=== PATIENT | male | born 1975 | race Caucasian/White ===

== ENCOUNTER 2016-09-03 05:43 | Emergency (ER) | payer MEDICAID, OTHER ==
[~2016-09-03] VITALS: Ht 200.7 cm; Wt 86.5 kg
[2016-09-03 06:02] VITALS: Ht 200.7 cm; Wt 86.5 kg
[2016-09-03] MEDS ORDERED: SOD CHLORIDE 0.9% 1,000 ML IV STA (08:29)
[2016-09-03] MEDS ORDERED: morphine 4 MG/ML VIAL IV STA (08:29)
--- NOTE | 2016-09-03 09:09 | RADRPT ---
PROCEDURE: Chest x-ray CLINICAL INDICATION: Abdominal pain TECHNIQUE: Chest single view COMPARISON: None FINDINGS: The heart is normal in size. The pulmonary vessels are normal in caliber. The lungs are clear. Th e costophrenic angles are sharp. The visualized bony thorax is unremarkable. IMPRESSION: No acute cardiopulmonary disease. RPTAT: HH .Baudilio Granados MD, Date Time Electronically viewed and signed by .aBudilio Granados MD, MD on 09/03/2016 09:09 .W/
[2016-09-03 09:35] LABS: ADD SCAN DIFF NO
--- NOTE | 2016-09-03 09:36 | RADRPT ---
PROCEDURE: X-ray, Abdominal series. CLINICAL INDICATION: Abdominal pain. TECHNIQUE: Abdominal x-ray series, two views. COMPARISON: None. FINDINGS: A nonobstructive bowel gas pattern is present. There is no evidence of free intra-abdominal air. T here are no abnormal calcifications. A small moderate volume of formed stool seen within the right c olon. Skeletal structures are unremarkable. IMPRESSION: No evidence of acute intra-abdominal pathology. RPTAT: AA .Anyi Pride MD, MD Date Time Electronically viewed and signed by .Anyi Pride MD, MD on 09/03/2016 09:36 .T/
[2016-09-03 09:38] LABS: BASOPHILS % 0.2 % (0.0-2.0); EOSINOPHILS # 0.1 10^3/ul (0.0-0.5); EOSINOPHILS % 1.2 % (0.0-7.0); HEMATOCRIT 41.4 % (42.0-52.0); HEMOGLOBIN 14.4 g/dl (14.0-18.0); LYMPHOCYTES % 19.4 % (15.0-51.0); MEAN CORPUSCULAR HEMOGLOBIN 31.4 pg (29.0-33.0); MEAN CORPUSCULAR HGB CONC 34.8 g/dl (32.0-37.0); MEAN CORPUSCULAR VOLUME 90.2 fl (82.0-101.0); MEAN PLATELET VOLUME 8.5 fl (7.4-10.4); MONOCYTE # 0.9 10^3/ul (0.3-0.9); NEUTROPHIL # 7.3 10^3/ul (1.6-7.5); NEUTROPHILS % 69.8 % (39.0-77.0); PLATELET COUNT 185 10^3/UL (140-415); RED BLOOD COUNT 4.59 10^6/ul (4.70-6.10); RED CELL DISTRIBUTION WIDTH 12.1 % (11.5-14.5); WHITE BLOOD COUNT 10.5 10^3/ul (4.8-10.8)
[2016-09-03 09:46] LABS: POTASSIUM 4.4 mmol/L (3.5-5.1)
[2016-09-03 09:47] LABS: INR 0.99; PROTIME 13.1 Sec (12.2-14.2)
[2016-09-03 09:48] LABS: ALBUMIN/GLOBULIN RATIO 1.25; BILIRUBIN,INDIRECT 0.4 mg/dl (0-1.1); BILIRUBIN,TOTAL 0.4 mg/dl (0.2-1.3); CREATININE 0.62 mg/dl (0.61-1.24); PARTIAL THROMBOPLASTIN TIME 28.9 Sec (25.0-35.0); TOTAL PROTEIN 7.2 g/dl (6.1-8.1)
[2016-09-03 09:49] LABS: CALCIUM 9.1 mg/dl (8.4-10.2)
[2016-09-03] MEDS ORDERED: LIDOCAINE/MYLANTA 40 ML BTL PO ONE (11:00)
[2016-09-03 11:03] VITALS: BP 120/70; PULSE 78; RESP 16; TEMP 98.3
[2016-09-03] MEDS ORDERED: RANI150T9 PO (12:17)
[2016-09-03] MEDS ORDERED: NAPR-688 PO (12:17)
[2016-09-03] MEDS ORDERED: BENZ100C70 PO (12:17)
--- NOTE | 2016-09-03 12:23 | ERD ---
ER Documentation Chief Complaint Date/Time DATE: 09/03/16 TIME: 12:18 Chief Complaint Left sided chest pain, radiates left shoulder, SOB, cough ROS All systems reviewed and are negative except as per history of present illness. Medications Home Meds Active Scripts Benzonatate* (Tessalon Perle*) 100 Mg Capsule, 100 MG PO Q8H Y for COUGH, #20 CAP Prov:ANASTASIA ARANA DO 09/03/16 Ranitidine Hcl* (Zantac*) 150 Mg Tablet, 150 MG PO BID, #60 TAB Prov:ANASTASIA ARANA DO 09/03/16 Naproxen* (Naproxen*) 500 Mg Tablet, 500 MG PO BID, #20 TAB Prov:ANASTASIA ARANA DO 09/03/16 Allergies Allergies: Coded Allergies: No Known Allergy (Unverified , 09/03/16) PMhx/Soc Medical and Surgical Hx: pt denies Medical Hx, pt denies Surgical Hx Hx Alcohol Use: Yes Hx Substance Use: No Hx Tobacco Use: No Smoking Status: Never smoker Physical Exam Vitals Vital Signs Date Time Temp Pulse Resp B/P Pulse Ox O2 Delivery O2 Flow Rate FiO2 09/03/16 06:02 98.3 75 16 119/75 98 Physical Exam Const: [] Head: Atraumatic Eyes: Normal Conjunctiva ENT: Normal External Ears, Nose and Mouth. Neck: Full range of motion..~ No meningismus. Resp: Clear to auscultation bilaterally Cardio: Regular rate and rhythm, no murmurs Abd: Soft, non tender, non distended. Normal bowel sounds Skin: No petechiae or rashes Back: No midline or flank tenderness Ext: No cyanosis, or edema Neur: Awake and alert Psych: Normal Mood and Affect Result Diagram: 09/03/16 0900 09/03/16 0900 Results 24 hrs Laboratory Tests Test 09/03/16 09:00 Activated Partial Thromboplast Time 28.9Sec Alanine Aminotransferase (ALT/SGPT) 40IU/L Albumin 4.0g/dl Albumin/Globulin Ratio 1.25 Alkaline Phosphatase 102IU/L Anion Gap 14 Aspartate Amino Transf (AST/SGOT) 22IU/L Basophils # 0.010^3/ul Basophils % 0.2% Blood Urea Nitrogen 11mg/dl Calcium Level 9.1mg/dl Carbon Dioxide Level 28mmol/L Chloride Level 104mmol/L Creatinine 0.62mg/dl Direct Bilirubin 0.00mg/dl Eosinophils # 0.110^3/ul Eosinophils % 1.2% Globulin 3.20g/dl Glucose Level 90mg/dl Hematocrit 41.4% Hemoglobin 14.4g/dl INR International Normalized Ratio 0.99 Indirect Bilirubin 0.4mg/dl Lipase 52U/L Lymphocytes # 2.010^3/ul Lymphocytes % 19.4% Mean Corpuscular Hemoglobin 31.4pg Mean Corpuscular Hemoglobin Concent 34.8g/dl Mean Corpuscular Volume 90.2fl Mean Platelet Volume 8.5fl Monocytes # 0.910^3/ul Monocytes % 9.0% Neutrophils # 7.310^3/ul Neutrophils % 69.8% Nucleated Red Blood Cells # 0.010^3/ul Nucleated Red Blood Cells % 0.0/100WBC Platelet Count 83362^3/UL Potassium Level 4.4mmol/L Prothrombin Time 13.1Sec Prothrombin Time Ratio 1.0 Red Blood Count 4.5910^6/ul Red Cell Distribution Width 12.1% Sodium Level 142mmol/L Total Bilirubin 0.4mg/dl Total Protein 7.2g/dl White Blood Count 10.510^3/ul Current Medications Medications (Trade) Dose Ordered Sig/Medardo Route PRN Reason Start Time Stop Time Status Last Admin Dose Admin Sodium Chloride (NS) 1,000 ml @ 1,000 mls/hr Q1H STAT IV 09/03/16 08:29 09/03/16 09:28 DC 09/03/16 09:27 Morphine Sulfate (morphine) 4 mg ONCE STAT IV 09/03/16 08:29 09/03/16 08:32 DC 09/03/16 09:26 Miscellaneous Medication (Gi Cocktail (2)) 40 ml ONCE ONCE PO 09/03/16 11:00 09/03/16 11:01 DC 09/03/16 11:05 Procedures/MDM Patient with atypical chest pain. His midabdomen and traveling up through his upper body to his left shoulder. No signs of acute ischemia on his EKG and negative troponin. He also see no signs of acute overwhelming bacterial infection. Patient has no elevated white blood cell count. Vital signs are stable. Per symptoms described as coffee likely has a viral upper respiratory infection and acute bronchitis. He is feeling better in the emergency room after administration of 2 mg morphine IV, GI cocktail and IV fluid administration. Is very well-appearing and is actually hungry and wanted to be discharged to that he go to eat when I spoke to him last. I'm discharging with naproxen as well as Tessalon Perles for his cough and Zantac. I recommend an echocardiogram through his doctor and given both written and verbal instructions for this. Return precautions to the ER also given for any return of chest pain or any concerning symptoms. EKG interpretation: Normal sinus rhythm rate of 75, left axis deviation, no ST- T wave changes concerning for acute ischemia. Cardio monitor interpretation: Normal sinus rhythm without arrhythmia Chest x-ray interpretation: I see no acute process. I see no acute infiltrate, no widened mediastinum, no pneumothorax, no fractures Departure Diagnosis: Primary Impression: Bronchitis Additional Impression: URI, acute Condition: Stable Patient Instructions: Bronchitis, No Antibiotic (Adult), Chest Pain, Uncertain Cause Referrals: [facility] YOU HAVE RECEIVED A MEDICAL SCREENING EXAM AND THE RESULTS INDICATE THAT YOU DO NOT HAVE A CONDITION THAT REQUIRES URGENT TREATMENT IN THE EMERGENCY DEPARTMENT. FURTHER EVALUATION AND TREATMENT OF YOUR CONDITION CAN WAIT UNTIL YOU ARE SEEN IN YOUR DOCTORS OFFICE WITHIN THE NEXT 1-2 DAYS. IT IS YOUR RESPONSIBILITY TO MAKE AN APPOINTMENT FOR FOLOW-UP CARE. IF YOU HAVE A PRIMARY DOCTOR --you should call your primary doctor and schedule an appointment IF YOU DO NOT HAVE A PRIMARY DOCTOR YOU CAN CALL OUR PHYSICIAN REFERRAL HOTLINE AT IF YOU CAN NOT AFFORD TO SEE A PHYSICIAN YOU CAN CHOSE FROM THE FOLLOWING [facility] CLINICS [facility] [address] [facility] [facility] [address] [facility] [address] [facility] [facility] [address] [facility]. [facility] [address] [facility]. [facility]. [address] Additional Instructions: Llame al doctor TYRA y mark harvey CONCHIS PARA DENTRO DE 2-3 LEONARDO. Consigue un referral para un ECHOCARDIOGRAMA. Dgale a la secretaria que nosotros le instruimos hacer esta conchis.Avise o llame si hernandez condicin se empeora antes de la conchis. Regresa aqui si peor o no mejor. ANASTASIA ARANA DO Sep 03, 2016 12:23
== END 2016-09-03 12:37 | disposition home or self-care (01) ==
LOC: E/R 05:43
DX: J40 Bronchitis, not specified as acute or chronic (principal); J06.9 Acute upper respiratory infection, unspecified
CPT/HCPCS: 36415; 71010; 74010; 80053; 83690; 85025; 85610; 85730; 93005; 96374; J2270; J7030; Z7502; Z7610

== ENCOUNTER 2017-04-01 13:37 | Emergency (ER) | payer MEDICAID ==
[~2017-04-01] VITALS: Ht 165.1 cm; Wt 88.0 kg
[~2017-04-01 13:37] MED LIST: BENZ100C70 PO; NAPR-688 PO; RANI150T9 PO
[2017-04-01 13:41] VITALS: Ht 165.1 cm; Wt 88.0 kg
[2017-04-01] MEDS ORDERED: IBUPROFEN 800 MG TAB PO ONE (14:30)
[2017-04-01] MEDS ORDERED: ONDANSETRON 4 MG INJ IV STA (14:37)
[2017-04-01] MEDS ORDERED: SOD CHLORIDE 0.9% 1,000 ML IV STA (14:37)
[2017-04-01] MEDS ORDERED: morphine 4 MG/ML VIAL IV STA (14:37)
--- NOTE | 2017-04-01 14:52 | RADRPT ---
PROCEDURE: XR Chest. CLINICAL INDICATION: Chest pain. TECHNIQUE: Single frontal view. COMPARISON: 09/03/2016. FINDINGS: The lungs are clear. The heart size is normal. There is no pleural effusion. There is no pneumothorax. IMPRESSION: 1. Normal chest radiograph. 2. No change from 09/03/2016. RPTAT: QQ .Hubert Kerr MD, MD Date Time Electronically viewed and signed by .Hubert Kerr MD, MD on 04/01/2017 14:52 .R/
[2017-04-01 15:10] LABS: BASOPHILS % 0.3 % (0.0-2.0); EOSINOPHILS # 0.2 10^3/ul (0.0-0.5); EOSINOPHILS % 2.3 % (0.0-7.0); HEMATOCRIT 47.6 % (42.0-52.0); HEMOGLOBIN 16.5 g/dl (14.0-18.0); LYMPHOCYTES # 2.1 10^3/ul (0.8-2.9); LYMPHOCYTES % 19.4 % (15.0-51.0); MEAN CORPUSCULAR HEMOGLOBIN 31.3 pg (29.0-33.0); MEAN CORPUSCULAR HGB CONC 34.7 g/dl (32.0-37.0); MEAN CORPUSCULAR VOLUME 90.3 fl (82.0-101.0); MEAN PLATELET VOLUME 8.4 fl (7.4-10.4); MONOCYTES % 9.7 % (0.0-11.0); NEUTROPHIL # 7.2 10^3/ul (1.6-7.5); NEUTROPHILS % 67.9 % (39.0-77.0); PLATELET COUNT 203 10^3/UL (140-415); RED BLOOD COUNT 5.27 10^6/ul (4.70-6.10); RED CELL DISTRIBUTION WIDTH 12.1 % (11.5-14.5); WHITE BLOOD COUNT 10.6 10^3/ul (4.8-10.8)
[2017-04-01 15:10] LABS: ADD UMIC YES; UR ASCORBIC ACID NEGATIVE (NEGATIVE); UR BILIRUBIN (Dip) NEGATIVE (NEGATIVE); UR BLOOD (Dip) 2+ mg/dL (NEGATIVE); UR CLARITY SLIGHTLY CLOUDY (CLEAR); UR COLOR YELLOW (YELLOW); UR GLUCOSE (Dip) NEGATIVE (NEGATIVE); UR KETONES (Dip) NEGATIVE (NEGATIVE); UR LEUKOCYTE ESTERASE (Dip) NEGATIVE Leu/ul (NEGATIVE); UR MUCUS MANY /HPF (NONE SEEN); UR NITRITE (Dip) NEGATIVE (NEGATIVE); UR RBC 4 /HPF (0-5); UR SPECIFIC GRAVITY (Dip) 1.034 (1.003-1.030); UR SQUAMOUS EPITHELIAL CELL FEW /HPF (FEW); UR TOTAL PROTEIN (Dip) 1+ mg/dl (NEGATIVE); UR UROBILINOGEN (Dip) NEGATIVE (NEGATIVE)
[2017-04-01 15:27] LABS: ALBUMIN 4.5 g/dl (3.3-4.9); ALBUMIN/GLOBULIN RATIO 1.25; BILIRUBIN,INDIRECT 0.5 mg/dl (0-1.1); BILIRUBIN,TOTAL 0.5 mg/dl (0.2-1.3); CALCIUM 9.7 mg/dl (8.4-10.2); CREATININE 0.91 mg/dl (0.61-1.24); TOTAL PROTEIN 8.1 g/dl (6.1-8.1)
--- NOTE | 2017-04-01 15:45 | RADRPT ---
PROCEDURE: CT abdomen and pelvis without contrast. Site of service: emergency room. CLINICAL INDICATION: Periumbilical abdominal pain TECHNIQUE: CT scan of the abdomen and pelvis without contrast was performed on the CT scanner. Th e patient was scanned without intravenous contrast. Oral contrast was not administered. 3-D post p rocessing coronal and sagittal re-formations were obtained from the axial source images. Exam D L P [address] D V O L 19 mgy. This exam is limited due to lack of intravenous contrast. One or more of the following dose reduction techniques were used: Automated exposure control Adjustment of the mA and/or kV according to patient size. Use of iterative reconstruction technique. COMPARISON: Abdominal series September 03, 2016 FINDINGS: CT abdomen: The lung bases are clear. The heart size is normal, without pericardial thickening or effusion. The liver is normal in size and density without focal mass or intrahepatic biliary dilatation. The spleen is normal in size and homogeneous in density. Distended. The pancreas as visualized is normal . The gallbladder and biliary tree are unremarkable and there is no evidence for biliary dilatation . The adrenal glands are symmetric and normal. The kidneys are symmetrically unremarkable as well. N o renal calculus or obstructive uropathy or suspicious, mass lesion is seen. The aorta is of normal caliber. There is no retroperitoneal lymphadenopathy. The prudence hepatis vega on is clear. Distended stomach with air fluid levels within the small and large bowel suggesting a g astroenteritis. CT pelvis: The small bowel loops situated within the pelvis are unremarkable. The appendix is normal. The sig moid colon and rectum are all unremarkable. No mass, lymphadenopathy, or free fluid is seen. No ac suzan inflammation is seen. No findings of free air or bowel perforation. The pelvic organs are normal. The pelvic sidewalls and inguinal regions are clear. The surrounding osseous structures are normal. No osteolytic or osteoblastic lesion is detected. IMPRESSION: Distended stomach. Air fluid levels within the stomach, small and large bowel loops suggesting a gas troenteritis. Otherwise, unremarkable examination. RPTAT: QQ .Patti Sr MD, MD Date Time Electronically viewed and signed by .Patti Sr MD, MD on 04/01/2017 15:45 .F/
[2017-04-01] MEDS ORDERED: HYDR-902 PO (16:51)
[2017-04-01] MEDS ORDERED: CIPR500T4 PO (16:51)
--- NOTE | 2017-04-01 17:38 | ERD ---
ER Documentation Chief Complaint Date/Time DATE: 04/01/17 TIME: 17:36 Chief Complaint pain @ left chest area radaites to the shoulder ; SOB; diarrhea x 3 days HPI Patient is a 41-year-old male with no medical problems who presents with chest pain and diarrhea. The patient says that he has had 3 days of diarrhea. He said that he had 1 hour of chest pain and shortness of breath prior to arrival. He tried to Imodium for the diarrhea. He has no fevers. He denies any vomiting. Upon review of old medical records the patient one previous visit to the ER in August 2016. ROS All systems reviewed and are negative except as per history of present illness. Medications Home Meds Active Scripts Hydrocodone/Acetaminophen (Piedmont 10-325 Tablet) 1 Each Tablet, 1 TAB PO Q6H Y for PAIN, #7 TAB Prov:ROBERT SUAREZ MD 04/01/17 Ciprofloxacin Hcl* (Ciprofloxacin Hcl*) 500 Mg Tablet, 500 MG PO BID for 7 Days , TAB Prov:ROBERT SUAREZ MD 04/01/17 Discontinued Scripts Benzonatate* (Tessalon Perle*) 100 Mg Capsule, 100 MG PO Q8H Y for COUGH, #20 CAP Prov:ANASTASIA ARANA DO 09/03/16 Ranitidine Hcl* (Zantac*) 150 Mg Tablet, 150 MG PO BID, #60 TAB Prov:ANASTASIA ARANA DO 09/03/16 Naproxen* (Naproxen*) 500 Mg Tablet, 500 MG PO BID, #20 TAB Prov:ANASTASIA ARANA DO 09/03/16 Allergies Allergies: Coded Allergies: No Known Allergy (Unverified , 09/03/16) PMhx/Soc History of Surgery: Yes (NOSE) Hx Alcohol Use: Yes Hx Substance Use: No Hx Tobacco Use: No Smoking Status: Never smoker FmHx Family History: No coronary disease Physical Exam Vitals Vital Signs Date Time Temp Pulse Resp B/P Pulse Ox O2 Delivery O2 Flow Rate FiO2 04/01/17 16:32 88 21 109/70 100 Room Air 04/01/17 13:41 97.2 104 24 128/76 97 Physical Exam Const: Moderate distress secondary to pain Head: Atraumatic Eyes: Normal Conjunctiva ENT: Normal External Ears, Nose and Mouth. Neck: Full range of motion..~ No meningismus. Resp: Clear to auscultation bilaterally Cardio: Regular rate and rhythm, no murmurs Abd: Soft, diffuse tenderness to palpation without rebound or guarding Skin: No petechiae or rashes Back: No midline or flank tenderness Ext: No cyanosis, or edema Neur: Awake and alert Psych: Normal Mood and Affect Result Diagram: 04/01/17 1500 04/01/17 1500 Results 24 hrs Laboratory Tests Test 04/01/17 14:50 04/01/17 15:00 Urine Color YELLOW Urine Clarity SLIGHTLY CLOUDY Urine pH 5.0 Urine Specific [place] 1.034 Urine Ketones NEGATIVEmg/dL Urine Nitrite NEGATIVEmg/dL Urine Bilirubin NEGATIVEmg/dL Urine Urobilinogen NEGATIVEmg/dL Urine Leukocyte Esterase NEGATIVELeu/ul Urine Microscopic RBC 4/HPF Urine Microscopic WBC 1/HPF Urine Squamous Epithelial Cells FEW/HPF Urine Mucus MANY/HPF Urine Hemoglobin 2+mg/dL Urine Glucose NEGATIVEmg/dL Urine Total Protein 1+mg/dl White Blood Count 10.610^3/ul Red Blood Count 5.2710^6/ul Hemoglobin 16.5g/dl Hematocrit 47.6% Mean Corpuscular Volume 90.3fl Mean Corpuscular Hemoglobin 31.3pg Mean Corpuscular Hemoglobin Concent 34.7g/dl Red Cell Distribution Width 12.1% Platelet Count 50033^3/UL Mean Platelet Volume 8.4fl Neutrophils % 67.9% Lymphocytes % 19.4% Monocytes % 9.7% Eosinophils % 2.3% Basophils % 0.3% Nucleated Red Blood Cells % 0.0/100WBC Neutrophils # 7.210^3/ul Lymphocytes # 2.110^3/ul Monocytes # 1.010^3/ul Eosinophils # 0.210^3/ul Basophils # 0.010^3/ul Nucleated Red Blood Cells # 0.010^3/ul Sodium Level 143mmol/L Potassium Level 4.0mmol/L Chloride Level 108mmol/L Carbon Dioxide Level 24mmol/L Anion Gap 15 Blood Urea Nitrogen 20mg/dl Creatinine 0.91mg/dl Glucose Level 114mg/dl Calcium Level 9.7mg/dl Total Bilirubin 0.5mg/dl Direct Bilirubin 0.00mg/dl Indirect Bilirubin 0.5mg/dl Aspartate Amino Transf (AST/SGOT) 25IU/L Alanine Aminotransferase (ALT/SGPT) 46IU/L Alkaline Phosphatase 120IU/L Troponin I < 0.012ng/ml Total Protein 8.1g/dl Albumin 4.5g/dl Globulin 3.60g/dl Albumin/Globulin Ratio 1.25 Lipase 102U/L Current Medications Medications (Trade) Dose Ordered Sig/Medardo Route PRN Reason Start Time Stop Time Status Last Admin Dose Admin Ibuprofen 800 mg 800 mg ONCE ONCE PO 04/01/17 14:30 04/01/17 14:31 DC 04/01/17 15:01 Sodium Chloride (NS) 1,000 ml @ 1,000 mls/hr Q1H STAT IV 04/01/17 14:37 04/01/17 15:36 DC 04/01/17 15:01 Morphine Sulfate (morphine) 4 mg ONCE STAT IV 04/01/17 14:37 04/01/17 14:38 DC 04/01/17 15:01 Ondansetron HCl (Zofran Inj) 4 mg ONCE STAT IV 04/01/17 14:37 04/01/17 14:38 DC 04/01/17 15:01 Procedures/MDM EKG read by me: Rate/Rhythm: Regular rate and rhythm at a normal rate Intervals: Normal Impression: No evidence of ischemia or arrhythmia Chest x-ray negative for pneumonia or pneumothorax per radiology. CT scan shows possible gastroenteritis per radiology. Patient is a 41-year-old male presents with chest pain and diarrhea. At this point I doubt acute coronary syndrome, pneumonia, pneumothorax, pulmonary embolism, or aortic dissection. His EKG, chest x-ray, and troponin are negative. Patient was found to have possible gastroenteritis on CT scan and I will give 3 days of Cipro as well as Piedmont for symptomatically relief. The patient can return for any worsening symptoms. At this point I believe outpatient management is appropriate. Departure Diagnosis: Primary Impression: Diarrhea Diarrhea type: unspecified type Qualified Code: R19.7 - Diarrhea, unspecified type Additional Impression: Chest pain Chest pain type: unspecified Qualified Code: R07.9 - Chest pain, unspecified type Condition: Fair Patient Instructions: Treating Diarrhea, Chest Pain, Uncertain Cause Additional Instructions: Llame al doctor MAANA y mark harvey CONCHIS PARA DENTRO DE 1-2 LEONARDO.Dgale a la secretaria que nosotros le instruimos hacer esta conchis.Avise o llame si hernandez condicin se empeora antes de la conchis. Regresa aqui si peor o no mejor. ROBERT SUAREZ MD Apr 01, 2017 17:38
[2017-04-01 17:45] VITALS: BP 111/80; PULSE 77; RESP 17; TEMP 97
== END 2017-04-01 17:46 | disposition home or self-care (01) ==
LOC: E/R 13:37
DX: R19.7 Diarrhea, unspecified (principal)
CPT/HCPCS: 36415; 71010; 74176; 80053; 81001; 83690; 84484; 85025; 93005; 96374; 96375; J2270; J2405; J7030; Z7502; Z7610

== ENCOUNTER 2017-07-19 05:53 | Emergency (ER) | END 2017-07-19 08:48 | disposition home or self-care (01) ==

== ENCOUNTER 2018-09-27 06:10 | Emergency (ER) | payer MEDICAID ==
[~2018-09-27] VITALS: Ht 162.6 cm; Wt 95.0 kg
[~2018-09-27 06:10] MED LIST changes: -BENZ100C70 PO; +CIPR500T4 PO; +FIORICET PO; +HYDR-3980 PO; -NAPR-688 PO; -RANI150T9 PO
[2018-09-27 06:12] VITALS: BP 118/76; PULSE 117; RESP 22; Ht 162.6 cm; Wt 95.0 kg
[2018-09-27] MEDS ORDERED: KETOROLAC 60 MG INJ IM STA (06:28)
[2018-09-27] MEDS ORDERED: DEXAMETHASONE 10 MG/ML 1 ML INJ IM ONE (06:30)
[2018-09-27] MEDS ORDERED: DIAZEPAM 5 MG TAB PO ONE (06:30)
[2018-09-27] MEDS ORDERED: HYDR-4011 PO (07:32)
[2018-09-27] MEDS ORDERED: MED4DP PO (07:32)
[2018-09-27] MEDS ORDERED: CYCL10TA7 PO (07:32)
[2018-09-27] MEDS ORDERED: NAPR-985 PO (07:32)
--- NOTE | 2018-09-27 07:52 | ERD ---
ER Documentation Chief Complaint Chief Complaint C/O WINSOME LOWER BACK, KNEE AND ANKLE PAIN SINCE 10PM HPI 43-year-old male presenting with lower back pain extending down bilateral legs. He denies any falls or injuries. He states he has had this pain before. It is worse with movement. Denies any abdominal pain. Denies fevers. Has not taken medications for back pain but did develop a headache last night that he took Excedrin for. Denies any changes to urination or bowel movement. Denies fevers. Denies medical problems. NKDA. Surgical history denies. Social hi story denies. Up-to-date on vaccinations. ROS All systems reviewed and are negative except as per history of present illness. Medications Home Meds Active Scripts Methylprednisolone* (Medrol* DOSE PACK) 4 Mg/Dose-Pack Tab.ds.pk, 4 MG PO . DIRECTED, #1 PACKET Prov:ESPERANZA MUÑOZ PA-C 09/27/18 Cyclobenzaprine Hcl* (Cyclobenzaprine Hcl*) 10 Mg Tablet, 10 MG PO TID, #15 TAB Prov:ESPERANZA MUÑOZ PA-C 09/27/18 Naproxen* (Naprosyn*) 500 Mg Tablet, 500 MG PO BID PRN for PAIN AND/OR INFLAMMATION, #30 TAB Prov:ESPERANZA MUÑOZ PA-C 09/27/18 Hydrocodone/Acetaminophen (Lena 5-325 Tablet) 1 Each Tablet, 1 TAB PO Q6H PRN for PAIN, #7 TAB Prov:ESPERANZA MUÑOZ PA-C 09/27/18 Acetamin/Butalbital/Caffeine* (Fioricet*) [id number] Tab, 1 TAB PO Q6H PRN for PAIN, #30 TAB Prov:ESPERANZA MUÑOZ PA-C 07/19/17 Hydrocodone/Acetaminophen (Lena 10-325 Tablet) 1 Each Tablet, 1 TAB PO Q6H PRN for PAIN, #7 TAB Prov:ROBERT SUAREZ MD 04/01/17 Ciprofloxacin Hcl* (Ciprofloxacin Hcl*) 500 Mg Tablet, 500 MG PO BID for 7 Days, TAB Prov:ROBERT SUAREZ MD 04/01/17 Allergies Allergies: Coded Allergies: No Known Allergy (Unverified , 09/03/16) PMhx/Soc History of Surgery: No Anesthesia Reaction: No Hx Neurological Disorder: No Hx Respiratory Disorders: No Hx Cardiac Disorders: No Hx Psychiatric Problems: No Hx Miscellaneous Medical Probl: No Hx Alcohol Use: No Hx Substance Use: No Hx Tobacco Use: No Smoking Status: Never smoker FmHx Family History: No diabetes, No coronary disease, No other Physical Exam Vitals Vital Signs Date Temp Pulse Resp B/P (MAP) Pulse Ox O2 O2 Flow FiO2 Time Delivery Rate 09/27/18 99.0 117 22 118/76 99 06:12 (90) Physical Exam GENERAL: The patient is well-appearing, well-nourished, in no acute distress CHEST: Clear to auscultation bilaterally. There are no rales, wheezes or rhonchi. HEART: Regular rate and rhythm. No murmurs, clicks, rubs or gallops. No S3 or S4. ABDOMEN:Soft, nontender and nondistended. Good bowel sounds. No rebound or guarding. No gross peritonitis. No gross organomegaly or masses. BACK: No midline or flank tenderness. Tender to palpation of bilateral paraspinous muscles extending down bilateral legs. EXTREMITIES: Equal pulses bilaterally. There is no peripheral clubbing, cyanosis or edema. No focal swelling or erythema. Full range of motion. Grossly neurovascularly intact. NEUROLOGIC: Alert and oriented. Cranial nerves II through XII intact. Motor strength in all 4 extremities with 5 out of 5 strength. Sensation grossly intact. Normal speech and gait. SKIN: There is no apparent rash or petechiae. The skin is warm and dry. Results 24 hrs Current Medications Medications Dose Sig/Medardo Start Time Status Last (Trade) Ordered Route PRN Stop Time Admin Dose Reason Admin Diazepam 5 mg ONCE ONCE 09/27/18 DC 09/27/18 (Valium) PO 06:30 06:36 09/27/18 06:31 10 mg ONCE ONCE 09/27/18 DC 09/27/18 Dexamethasone IM 06:30 06:36 (Decadron) 09/27/18 06:31 Ketorolac 60 mg ONCE STAT 09/27/18 DC 09/27/18 Tromethamine IM 06:28 06:36 (Toradol) 09/27/18 06:30 Procedures/MDM ER course: Valium Toradol and Decadron given ED. Upon reevaluation patient states his symptoms had dramatically improved. MDM: 43-year-old male presents with back pain. I considered aortic dissection versus other acute abdominal emergency which may be radiating to the back. I have low suspicion as exam is non-concerning. Patient likely has muscular skeletal strain area patient's pain was improved with medication given the ER will discharge with supportive medications. Patient is told if symptoms change or worsen to return immediately to the ER. All questions answered at discharge Departure Diagnosis: Primary Impression: Back pain Condition: Stable Patient Instructions: Back Pain (Acute Or Chronic) Additional Instructions: FOLLOW UP WITH YOUR PRIMARY CARE PHYSICIAN TOMORROW.Return to this facility if you are not improving as expected. ESPERANZA MUÑOZ PA-C Sep 27, 2018 07:52
== END 2018-09-27 07:59 | disposition home or self-care (01) ==
LOC: FTE 06:10
DX: M54.5 Low back pain (principal)
CPT/HCPCS: 96372; J1100; J1885; Z7502; Z7610